=== PATIENT | male | born 1950 | race African-American/Black ===

== ENCOUNTER 2017-05-20 16:29 | Emergency (ER) | payer OTHER ==
[~2017-05-20] VITALS: Ht 185.4 cm; Wt 88.2 kg
[2017-05-20] MEDS ORDERED: TAMS0.4C32 PO (16:33)
[2017-05-20] MEDS ORDERED: DEXAMETHASONE SOD PHOS 4 MG/ML VIAL IM ONE (17:45)
[2017-05-20 19:29] VITALS: BP 138/74
== END 2017-05-20 19:31 | disposition home or self-care (01) ==
LOC: EMS 16:32
DX: M25.531 Pain in right wrist (principal); L08.9 Local infection of the skin and subcutaneous tissue, unspecified; L23.9 Allergic contact dermatitis, unspecified cause
CPT/HCPCS: 96372; 99283; J1100

== ENCOUNTER 2017-06-12 23:25 | Emergency (ER) | payer OTHER ==
[~2017-06-12] VITALS: Ht 185.4 cm; Wt 90.0 kg
[~2017-06-12 23:25] MED LIST: TAMS0.4C32 PO
[2017-06-13 00:03] LABS: BASOPHILS # (AUTO) 0.03 K/uL (0.00-0.20); BASOPHILS % (AUTO) 0.6 % (0.0-2.0); EOSINOPHILS # (AUTO) 0.04 K/uL (0.00-0.70); EOSINOPHILS % (AUTO) 0.75 % (1.0-6.0); HEMATOCRIT 43.3 % (41-53); HEMOGLOBIN 14.3 g/dL (13.5-17.5); LYMPHOCYTES # (AUTO) 1.6 K/uL (1.0-4.8); LYMPHOCYTES % (AUTO) 28.5 % (22.0-44.0); MEAN CORPUSCULAR HEMOGLOBIN 29.2 pg (26.0-34.0); MEAN CORPUSCULAR VOLUME 88 fL (80-100); MONOCYTES # (AUTO) 0.7 K/uL (0.1-1.0); NEUTROPHILS # (AUTO) 3.3 K/uL (1.8-7.7); NEUTROPHILS % (AUTO) 58.1 % (40.0-70.0); PLATELET COUNT (AUTO) 194 K/uL (150-450); RED BLOOD CELL COUNT(AUTO) 4.89 MIL/uL (4.50-5.90)
[2017-06-13 00:11] LABS: CALCIUM, TOTAL 8.7 mg/dL (8.8-10.5); CREATININE 1.54 mg/dL (0.60-1.30); POTASSIUM 3.7 mmol/L (3.5-5.1)
[2017-06-13 00:26] LABS: PROTHROMBIN TIME 10.9 SEC (9.4-11.6)
[2017-06-13 00:35] LABS: ALBUMIN 3.8 g/dL (3.4-5.0); BILIRUBIN,TOTAL 0.5 mg/dL (0.1-1.0); CREATINE KINASE MB 5.3 ng/mL (0-5); TOTAL PROTEIN, SERUM 7.7 g/dL (6.4-8.2)
[2017-06-13 01:42] LABS: APPEARANCE,URINE CLEAR (CLEAR); GLUCOSE, URINE (UA) NEGATIVE (NEGATIVE); KETONES,URINE NEGATIVE (NEGATIVE); LEUKOCYTE ESTERASE ,URINE SMALL (NEGATIVE); NITRATE,URINE NEGATIVE (NEGATIVE); OCCULT BLOOD,URINE NEGATIVE (NEGATIVE); PH,URINE 6.5 (5.0-8.0); PROTEIN,URINE TRACE (NEGATIVE)
[2017-06-13] MEDS ORDERED: SODIUM CHLORIDE 0.9% 1,000 ML IV ONE (01:45)
[2017-06-13 01:46] LABS: BILIRUBIN,URINE PRELIM. POSITIVE (NEGATIVE)
[2017-06-13 02:02] LABS: BACTERIA,URINE Rare /HPF (None Seen); RBC,URINE 0-2 /HPF (0-2); SQUAMOUS EPITHELIAL CELL,UR Few /LPF (None Seen)
[2017-06-13 02:45] VITALS: BP 140/87
== END 2017-06-13 03:03 | disposition home or self-care (01) ==
LOC: EMS 23:26
DX: R07.89 Other chest pain (principal); R25.2 Cramp and spasm
CPT/HCPCS: 36415; 71045; 80053; 81001; 82550; 82553; 82962; 83880; 84484; 85025; 85610; 85730; 93005; 96360; 99285; J7030